=== PATIENT | male | born 1960 | race African-American/Black ===

== ENCOUNTER 2019-10-30 07:11 | Emergency (ER) | payer OTHER ==
[~2019-10-30] VITALS: Ht 167.6 cm; Wt 102.9 kg
--- NOTE | 2019-10-30 07:17 | NUR ---
Pt ambulates from triage to room with steady gait and balance, NADN, No obvious defecits observed.
[2019-10-30] MEDS ORDERED: DEXAMETHASONE 4 MG TABLET ONE (07:28)
[2019-10-30] MEDS ORDERED: DEXAMETHASONE 4 MG TABLET PO ONE (07:30)
[2019-10-30 08:09] VITALS: BP 150/80
--- NOTE | 2019-10-30 08:09 | NUR ---
ASSUMED CARE FOR DISCHARGE ONLY Patient given discharge instructions and they have confirmed that they understand the instructions. Patient ambulatory with steady gait.
== END 2019-10-30 08:11 | disposition home or self-care (01) ==
LOC: ED 08:00
DX: T78.3XXA Angioneurotic edema, initial encounter (principal); T46.5X5A Adverse effect of other antihypertensive drugs, initial encounter; Y92.89 Other specified places as the place of occurrence of the external cause
CPT/HCPCS: 99282